=== PATIENT | female | born 1985 | race Caucasian/White ===

== ENCOUNTER 2017-05-25 20:37 | Emergency (ER) | payer BC, OTHER ==
[~2017-05-25] VITALS: Ht 152.4 cm; Wt 62.6 kg
[~2017-05-25 20:37] MED LIST: IBUPROFEN 800800 MG PO; NORCO 5-325 TA1 EACH PO; NORFLEX100 MG PO; ULTRAM 50MG TAB50 MG PO
[2017-05-25 21:05] LABS: URINE BILIRUBIN NEGATIVE (Negative); URINE BLOOD NEGATIVE (Negative); URINE CLARITY CLEAR; URINE COLOR YELLOW; URINE GLUCOSE-RANDOM* NEGATIVE (Negative); URINE KETONES NEGATIVE (Negative); URINE NITRITE-REFLEX NEGATIVE (Negative); URINE PROTEIN (DIPSTICK) NEGATIVE (Negative)
[2017-05-25 21:07] LABS: URINE LEUKOCYTES-REFLEX TRACE (Negative)
[2017-05-25 22:24] LABS: ABSOLUTE NEUTROPHILS 1.9 thou/uL (1.4-8.2); BASOPHILS 1.4 % (0.0-2.0); EOSINOPHILS 2.6 % (0.0-3.0); HEMATOCRIT 30.2 % (37.0-47.0); LYMPHOCYTES 51.4 % (24.0-44.0); MCH 26.2 pg (26.0-34.0); MCHC 33.3 g/dL (28.0-37.0); MCV 78.9 fL (80.0-100.0); MONOCYTES 9.7 % (1.0-8.0); PLATELET COUNT 206 thou/uL (150-400); POLYS 34.9 % (36.0-66.0); RBC 3.83 mil/uL (4.20-5.00); RDW 16.1 % (10.5-14.5); WBC 5.5 thou/uL (4.0-11.0)
[2017-05-25 22:32] LABS: CREATININE 0.9 mg/dL (0.6-1.0); POTASSIUM 3.4 mmol/L (3.5-5.1)
[2017-05-25 22:38] LABS: ALBUMIN 3.5 g/dL (3.4-5.0); TOTAL BILIRUBIN 0.3 mg/dL (<0.1-1.0)
[2017-05-25] MEDS ORDERED: MOBIC15 MG PO (23:08)
[2017-05-25] MEDS ORDERED: BENTYL 20 MG TA20 M1 PO (23:08)
== END 2017-05-25 23:50 | disposition home or self-care (01) ==
LOC: ER 20:37
PROVIDERS: Emergency Medicine
DX: R10.9 Unspecified abdominal pain (principal); M54.9 Dorsalgia, unspecified